=== PATIENT | female | born 1975 | race Caucasian/White ===

== ENCOUNTER 2022-09-08 07:38 | Outpatient (REF) | payer OTHER, SELFPAY ==
[2022-09-08 11:26] LABS: Appearance Urine Clear; Color Urine Yellow; Glucose Urine UA Negative (Negative); Leukocyte Esterase Urine Negative (Negative); Nitrite Urine Negative (Negative); PH 5.5 (5.0-9.0); Urine Blood Negative (Negative); Urine Ketones Negative (Negative); Urine Protein Negative (Neg-Trace)
[2022-09-08 11:51] LABS: Hematocrit 43.9 % (37.0-47.0); Hemoglobin 14.6 g/dl (12.0-16.0); Mean Corpuscular HGB Conc 33.3 g/dl (31.0-35.0); Mean Corpuscular Hemoglobin 28.3 pg (27.0-33.0); Mean Corpuscular Volume 85.2 fL (80.0-98.0); Mean Platelet Volume 10.5 fL (9.4-12.3); Platelet Count 251 X10*3/uL (160-400); Red Blood Count 5.15 X10*6/uL (4.20-5.50); Red Cell Distribution Width 13.6 % (11.0-16.0); White Blood Count 12.9 X10*3/uL (4.8-10.8)
[2022-09-08 12:20] LABS: Alanine Aminotransferase 32 U/L (0-31); Albumin Level 4.9 g/dL (3.5-5.0); Alkaline Phosphatase 70 U/L (39-117); Anion Gap 15 (12-20); Aspartate Amino Transferase 21 U/L (5-31); Bilirubin Total 1.1 mg/dL (0.0-1.0); Blood Urea Nitrogen 13 mg/dL (9-16); Calcium 9.4 mg/dL (8.4-10.2); Carbon Dioxide 25 mmol/L (22-29); Chloride 103 mmol/L (96-108); Cholesterol 181 mg/dL; Estimated Glomerular Filt Rate > 60; Glucose Fasting 101 mg/dL (60-99); HDL Cholesterol 36 mg/dL; LDL Cholesterol Calculated 120 mg/dl; Potassium 4.4 mmol/L (3.3-5.1); Sodium 139 mmol/L (135-145); Total Protein 7.3 g/dL (6.5-8.0); Triglycerides 129 mg/dL
[2022-09-08 12:28] LABS: TSH reflex Free T4 2.68 uIU/mL (0.32-4.0)
[2022-09-13 15:16] LABS: Vitamin D 25-OH, D2 <4 ng/mL; Vitamin D 25-OH, D3 40 ng/mL; Vitamin D 25-OH, Total 40 ng/mL (30-100)
== END 2022-09-08 07:39 | disposition home or self-care (01) ==
LOC: HO.HMGCLDS 07:38
PROVIDERS: PCP Hospitalist; Visit Provider Hospitalist
DX: Z00.00 Encounter for general adult medical examination without abnormal findings (principal); Z11.3 Encounter for screening for infections with a predominantly sexual mode of transmission; Z13.9 Encounter for screening, unspecified
CPT/HCPCS: 36415; 80053; 80061; 81003; 82306; 84443; 85027

== ENCOUNTER 2022-09-18 12:42 | Outpatient (REF) | payer OTHER, SELFPAY ==
--- NOTE | ~2022-09-18 | US_ITS ---
EXAMINATION: US ABDOMEN LIMITED CLINICAL INFORMATION: Other benign neoplasm of skin of trunk. Lump right upper quadrant abdominal wall COMPARISON: None TECHNIQUE: Real-time imaging of the region of concern in the right upper quadrant abdominal wall using a linear and curved transducer as indicated by the patient. FINDINGS: No abnormality is evident by ultrasound. No solid or cystic mass, fluid collection or hernia is appreciated. US/US abdomen limited IMPRESSION: No abnormality appreciated by ultrasound.
== END 2022-09-18 12:43 | disposition home or self-care (01) ==
LOC: HO.HMGCX 12:42
PROVIDERS: PCP Hospitalist; Visit Provider Hospitalist
DX: D23.5 Other benign neoplasm of skin of trunk (principal)
CPT/HCPCS: 76705

== ENCOUNTER 2023-06-04 13:29 | Outpatient (AMB) | payer OTHER, SELFPAY ==
--- NOTE | 2023-06-04 13:38 | MHC.PC.OV ---
Vital Signs 06/04/23 13:39 Height 5 ft 7.5 in Weight 227 lb 6 oz BMI 35.1 BP 132/70 Blood Pressure Location Rt brachial Position Sitting Respiration 12 Pulse 77 Pulse Source Pulse Oximeter Temp 97.7 F Temp Source Temporal Artery Scan Pulse Oximetry (%) 99 Oxygen Delivery Method Room Air Intake Visit Reasons: Discuss Gastro Referral Intake Note: Patient states she needs to get a colonoscopy as well as an order mammogram. Patient has a a spot on chest and she doesn't know what it . Patient states she has a lump by her rib cage that moves around and hurts here and there. Packing Attendant Required: No Accompanied by: Self / Same As Patient Allergies No Known Allergies Allergy (Verified 06/04/23 14:10) Medication List - Last Reconciled 06/04/23 by Tati Russell CNP docosahexaenoic acid-epa 120-180 mg (Fish Oil) 1 cap PO DAILY krill oil mg PO metformin 500 mg PO DAILY 90 days sertraline 50 mg PO DAILY Tobacco use date assessed: 06/04/23 Dental Screening Dental Screen Date: 06/04/23 Did you have a dental visit in the last 12 months?: Yes Did you have a dental problem in the last 6 months where you did not have access to dental care?: No Was dental information given to patient?: Patient has dentist HPI HPI Comments History of Present Illness Details 47-year-old female presents with complaints of a lump to her right upper quadrant with intermittent discomfort. She notes that the lump has been present for 2 years, have been painless until a month and half ago. The lump has been the same size. Review of US on 08/2022 was normal. She also reports two painless lumps on her chest. She notes her mother has h/o colon polyps and was advised for there children to have colonoscopy at age 45. She requests a colonoscopy. She also requests a mammogram. She states that her last mammogram was 3 years ago: normal [facility] Medical History (Updated 06/04/23 @ 14:38 by Tati Russell CNP) Anxiety History of PCOS No pertinent family history Surgical History (Updated 06/04/23 @ 13:58 by Sabrina Henderson MA) H/O lumpectomy S/P laparoscopic hysterectomy Social History (Updated 06/04/23 @ 14:02 by Sabrina Henderson MA) Household Members: Spouse Caregiver staying overnight: No Housing: House Are you a primary memory care program director to a significant other at home: No Do you presently have visiting nurse or other home services: No 75 years or older and lives alone: No Alcohol intake: current Patient Tobacco Use Status: Never used Tobacco e-Cigarette/Vaping Use: Never Used Use of substances other than those prescribed or required for medical reasons: No Any prior treatment program specific to substance use: No Have you been hit, kicked, punched, or otherwise hurt by someone within the past year? If so, by whom?: No Do you feel safe in your current relationship?: No Is there a partner from a previous relationship who is making you feel unsafe now?: No Are you made to feel afraid or neglected: No Special suki needs: No Agree to transfusion: Yes Are you DNR?: No Advance Directives: No Healthcare Proxy: No If Yes to HCP, is it invoked: No Guardian: No Access to Firearms: No Do you have thoughts of harming others: None Do you have a plan to hurt others: No Plan Do you have the means to hurt others: No Current Diet: Other Recently lost weight without trying: No Eating poorly because of decreased appetite: No Nutrition Risks: No Nutritional Risk Patient : No : No Visits dentist regularly: Yes Poor oral hygiene: No service: No Current occupational status: employed Sexually active: Yes Sexual orientation: Straight/Heterosexual Gender identity: Female Cognitive needs: No Hearing needs: No Vision needs: No Review of Systems Const Details: Const Denies chills, Denies fatigue, Denies fever(s), Denies headache(s) and Denies weakness ENT Denies dizziness and Denies headache(s) Card Denies chest pain, Denies lightheadedness, Denies dyspnea and Denies other (Palpitations) Resp Denies cough, Denies dyspnea, Denies wheezing and Denies other ( shortness of breath) GI Reports lump to her right upper quadrant, Denies abdominal pain, Denies melena, Denies hematochezia, Denies change in bowel habits, Denies dyspepsia and Denies nausea Denies hematuria and Denies dysuria Musc Denies abnormal gait, Denies myalgias, Denies arthralgias, Denies numbness and Denies tingling Skin/Breast Reports bumps on upper chest, Denies rash, Denies unusual bruising and Denies wounds Neuro Denies abnormal gait, Denies dizziness, Denies headache(s), Denies memory loss, Denies numbness, Denies Sensory deficit (Neuro), Denies tingling and Denies weakness Psych Denies anxiety and Denies depression Endo Denies cold intolerance, Denies fatigue, Denies heat intolerance, Denies polydipsia and Denies polyuria Aller/Immun Denies wheezing Physical exam (Primary Care) Vital Signs: Last Vital Signs Temp 97.7 F 06/04/23 13:39 Pulse 77 06/04/23 13:39 Resp 12 06/04/23 13:39 BP 132/70 06/04/23 13:39 Pulse Ox 99 06/04/23 13:39 Oxygen Delivery Method Room Air 06/04/23 13:39 BMI result Body Mass Index 35.1 Tobacco/Smoking Status: Tobacco use Status Tobacco use date assessed 06/04/23 06/04/23 14:02 Patient Tobacco Use Status Never used Tobacco 06/04/23 14:02 e-Cigarette/Vaping Use Never Used 06/04/23 14:02 Const Other: General: no acute distress and well developed Nutritional Appearance: well nourished Orientation/consciousness: patient oriented x3 HENMT Head: Yes normocephalic and Yes atraumatic Eyes General: appearance normal, both eyes and all related structures Pupils: Equal, round and reactive pupils present EOM: EOMs intact bilaterally Resp Effort & Inspection: normal respiratory effort Auscultation: clear to auscultation bilaterally Cardio Rate: regular rate Rhythm: regular rhythm Heart sounds: S1 normal heart sound present, S2 normal heart sound present, no gallops, no murmurs and no rubs GI Palpation (GI): No Abdominal aortic bruit present, Soft to palpation, nontender, No hepatosplenomegaly present and No Rebound tenderness present Approximately 5 cm by 5 cm, soft, painless lump to her right upper quadrant on the border of the ribcage Auscultation: normal bowel sounds General: Yes no CVA tenderness Back/Spine/Pelvis Back: no CVA tenderness Cervical Spine: cervical ROM normal and No Cervical spine tenderness Thoracic/Lumbar Spine: thoraco-lumbar ROM normal, No pain with thoraco-lumbar ROM, No thoracic spinal tenderness and No lumbar spinal tenderness Extrem General: Yes normal to inspection, No edema and No calf tenderness Skin General: warm and dry. Normal skin color. Normal skin turgor Lesions: Two, small, thick, raised scars to the mid upper chest Rashes: no rashes Trauma: no lacerations or abrasions Wounds: no wounds Nails: normal Neuro General: patient oriented x3, gait normal and no focal neuro deficit Cranial nerves: Yes Equal, round and reactive pupils present Cognition (Neuro): normal cognition Gait exam (Neuro): Normal gait present Motor exam (neuro): 5/5 motor strength present throughout Sensory Exam: No Sensory deficit (Neuro) Psych Affect: normal affect Assessment and Plan Assessment & Plan (1) Abdominal lump: Code(s): R19.00 - Intra-abdominal and pelvic swelling, mass and lump, unspecified site Plan: 47-year-old female presents with complaints of a lump to her right upper quadrant with intermittent discomfort. She notes that the lump has been present for 2 years, have been painless until a month and half ago. The lump has been the same size. Review of US on 08/2022 was normal. Approximately 5 cm by 5 cm, soft, painless lump to her right upper quadrant on the border of the ribcage Likely lipoma May take Tylenol ibuprofen for pain or discomfort Warm/cool compresses encouraged Ultrasound ordered Return with worsening or new signs and symptoms Verbalized understanding and agreed with treatment plan. (2) Keloid scar: Code(s): L91.0 - Hypertrophic scar Plan: She also reports 2 painless lumps on her chest Two, small, thick, raised scars to the mid upper chest, consistent with keloid scar Keloids are not harmful and no treatment required May have it removed surgically for cosmetic purposes. However, may return after surgery Follow-up as needed Verbalized understanding and agreed with the plan. (3) Colon cancer screening: Code(s): Z12.11 - Encounter for screening for malignant neoplasm of colon Plan: She notes her mother has h/o colon polyps and was advised for there children to have colonoscopy at age 45. She requests a colonoscopy. Colonoscopy referral made Return with symptoms or concerns Verbalized understanding and agreed with treatment plan. (4) Breast cancer screening: Code(s): Z12.39 - Encounter for other screening for malignant neoplasm of breast Plan: Requests a mammogram. She states that her last mammogram was 3 years ago: normal Mammogram ordered Orders: Orders MM screening mammo BI Today Z12.31 - Encounter for screening mammogram for malignant neoplasm of breast US abdomen limited Today R19.00 - Intra-abdominal and pelvic swelling, mass and lump, unspecified site Referrals Gastroenterology Referral Z12.11 - Encounter for screening for malignant neoplasm of colon Coding Level of Care Code Est Pt Level 4 (85724) Diagnoses Abdominal lump R19.00 Keloid scar L91.0 Colon cancer screening Z12.11 Breast cancer screening Z12.39 Time Spent (min) 35
[2023-06-04 13:39] VITALS: BP 132/70; PULSE 77; RESP 12; TEMP 36.5; O2SAT 99; BMI 35.1
== END 2023-06-04 14:29 | disposition home or self-care (01) ==
PROVIDERS: PCP Hospitalist; Visit Provider Nurse Practitioner Family
DX: R19.00 Intra-abdominal and pelvic swelling, mass and lump, unspecified site (principal); L91.0 Hypertrophic scar; Z12.11 Encounter for screening for malignant neoplasm of colon; Z12.39 Encounter for other screening for malignant neoplasm of breast
CPT/HCPCS: 99214

== ENCOUNTER 2023-06-16 08:12 | Outpatient (REF) | payer OTHER, SELFPAY ==
--- NOTE | ~2023-06-16 | US_ITS ---
EXAMINATION: US ABDOMEN LIMITED CLINICAL INFORMATION: Lump in the right upper quadrant abdominal wall. COMPARISON: None available. TECHNIQUE: Real-time imaging of the right upper quadrant abdominal wall. FINDINGS: Targeted sonographic evaluation of the area of clinical concern in the right upper quadrant abdominal wall demonstrating an approximately 6.3 x 5.3 x 1.8 cm well-defined soft tissue lesion with relative iso echogenicity compared to the subcutaneous fat and no associated vascular flow. US/US abdomen limited IMPRESSION: There is a 6.3 cm well-defined soft tissue lesion in the right upper quadrant abdominal wall which most likely represents a lipoma. However, if there is clinical concern, a follow-up ultrasound could be obtained to ensure stability.
== END 2023-06-16 08:13 | disposition home or self-care (01) ==
LOC: HO.HMGCX 08:12
PROVIDERS: PCP Hospitalist; Visit Provider Hospitalist
DX: R19.00 Intra-abdominal and pelvic swelling, mass and lump, unspecified site (principal)
CPT/HCPCS: 76705

== ENCOUNTER 2023-07-23 08:12 | Outpatient (AMB) | payer OTHER, SELFPAY ==
[2023-07-23 08:22] VITALS: BP 169/93; PULSE 63; BMI 35.4
--- NOTE | 2023-07-23 08:22 | A.OFFVIS_ITS ---
Intake Vital Signs 07/23/23 08:22 Height 5 ft 7.5 in Weight 229 lb 11.547 oz BMI 35.4 BP 169/93 H Blood Pressure Location Lt brachial Position Sitting Pulse 63 Intake Visit Reasons: Colonoscopy Screening Intake Note: Odalys presents in office as a new.patient for a colonoscopy screening PT CC: pt reports having no concerns , 1st colo pt denies any other GI Issues Table Games Floor Supervisor Required: No Accompanied by: Self / Same As Patient Allergies No Known Allergies Allergy (Verified 07/23/23 08:23) Medication List - Last Reconciled 07/23/23 by Mayi Alcantar PA-C docosahexaenoic acid-epa 120-180 mg (Fish Oil) 1 cap PO DAILY krill oil mg PO metformin 500 mg PO DAILY 90 days sertraline 50 mg PO DAILY HPI HPI Comments History of Present Illness Details A 47 y/o f index screening-family history of colon polyps, her mother at 50 bhavik Normal bowels-sometimes diarrhea- associates with metformin She has hemorrhoids-- she wants to consult for removal [facility] Medical History (Updated 07/23/23 @ 09:04 by Mayi Alcantar PA-C) Anxiety History of PCOS No pertinent family history Surgical History (Updated 07/23/23 @ 08:43 by Mayi Alcantar PA-C) H/O lumpectomy Social History Household Members: Spouse Caregiver staying overnight: No Housing: House Are you a primary care management specialist to a significant other at home: No Do you presently have visiting nurse or other home services: No 75 years or older and lives alone: No Alcohol intake: current Patient Tobacco Use Status: Never used Tobacco e-Cigarette/Vaping Use: Never Used Special suki needs: No Agree to transfusion: Yes service: No Current occupational status: employed Sexual orientation: Straight/Heterosexual Gender identity: Female Cognitive needs: No Hearing needs: No Vision needs: No Review of Systems Const All systems reviewed & are unremarkable except as noted in HPI and below Card Denies chest pain and Denies dyspnea Resp Denies dyspnea GI Denies abdominal pain, Denies nausea and Denies vomiting Physical Exam Vital Signs: Last Vital Signs Pulse 63 07/23/23 08:22 BP 169/93 H 07/23/23 08:22 BMI result Body Mass Index 35.4 Const General: cooperative, healthy appearing, comfortable, no acute distress and well groomed Orientation/consciousness: patient oriented x3 Limitations: no limitations Eyes Sclerae: sclerae normal Resp Effort & Inspection: normal respiratory effort and able to speak in complete sentences Auscultation: rales and wheezes right upper Cardio Rate: regular rate Rhythm: regular rhythm Heart sounds: S1 normal heart sound present and S2 normal heart sound present GI Palpation (GI): Soft to palpation and nontender Auscultation: normal bowel sounds Skin General skin exam: no rashes or lesions noted Neuro General: patient oriented x3 Extrem General: Yes full ROM Psych Appearance: grossly normal and well kempt Mental Status: mental status grossly normal Speech and movement: Normal speech and movement present Affect: normal affect Attitude: cooperative Thought process: Normal thought process present Thought content: Normal thought content present Insight: Good insight present (Psych) Judgement: Good judgement present (Psych) Assessment & Plan Assessment & Plan (1) Colon cancer screening: Comment: Family history colon polyps her mother her in her 50s Code(s): Z12.11 - Encounter for screening for malignant neoplasm of colon Plan: Screening colonoscopy-MiraLax Gatorade split (2) External hemorrhoid: Code(s): K64.4 - Residual hemorrhoidal skin tags Plan: Surgical referral (3) Encounter for colonoscopy in patient with family history of colon polyps: Comment: Mother in her 50s-history of colon polyps Code(s): Z12.11 - Encounter for screening for malignant neoplasm of colon; Z83.71 - Family history of colonic polyps Plan Index screening colonoscopy MiraLax Gatorade split prep-she is hopeful for small amount of anesthesia Surgical referral for him Orders: Orders Colonoscopy - GI Use Only Today Z12.11 - Encounter for screening for malignant neoplasm of colon Referrals General Surgery Referral K64.4 - Residual hemorrhoidal skin tags Medications: New bisacodyl (Dulcolax (bisacodyl)) Take 4 tablets by mouth at 12:00pm the day before your procedure. 20 mg (4 x 5 mg) PO ONCE 1 day 4 tabs 0RF colonoscopy prep Z12.11 - Encounter for screening for malignant neoplasm of colon polyethylene glycol 3350 (Miralax) Take as directed by mouth the day before your procedure. 238 grams PO ONCE 1 day PRN 238 grams 0RF laxative effect Patient Instructions: Very pleasant 47-year-old female PCOS family history of colon polyps referred for index screening colonoscopy-she has no GI complaints. Index screening colonoscopy MiraLax Gatorade split prep No metformin evening before procedure or morning of procedure Maintain high-fiber diet avoid straining with however Surgical referral Coding Level of Care Code New Pt Level 3 (14502) Diagnoses Colon cancer screening Z12.11 External hemorrhoid K64.4 Encounter for colonoscopy in patient with family history of colon polyps Z12.11; Z83.71 Time Spent (min) 30
== END 2023-07-23 09:15 | disposition home or self-care (01) ==
PROVIDERS: PCP Hospitalist; Visit Provider Physician Assistant
DX: Z12.11 Encounter for screening for malignant neoplasm of colon (principal); K64.4 Residual hemorrhoidal skin tags; Z83.71 Family history of colonic polyps; Z01.818 Encounter for other preprocedural examination
CPT/HCPCS: S0285

== ENCOUNTER → 2023-07-23 08:12 | Outpatient (BNVA) | payer OTHER, SELFPAY | PROVIDERS: PCP Hospitalist; Visit Provider Physician Assistant ==

== ENCOUNTER 2023-07-30 16:01 | Outpatient (REF) | payer OTHER, SELFPAY | END 2023-07-30 16:02 | disposition home or self-care (01) | LOC: HO.MAMMO 16:01 | PROVIDERS: PCP Nurse Practitioner Family; Visit Provider Nurse Practitioner Family | DX: Z12.31 Encounter for screening mammogram for malignant neoplasm of breast (principal) | CPT/HCPCS: 77063; 77067 ==

== ENCOUNTER → 2023-07-30 16:15 | Outpatient (BNV) | payer OTHER, SELFPAY | PROVIDERS: PCP Nurse Practitioner Family; Visit Provider Radiology Diagnostic Radiology | DX: Z12.31 Encounter for screening mammogram for malignant neoplasm of breast (principal) | CPT/HCPCS: 77063; 77067 ==

== ENCOUNTER 2023-12-04 07:42 | Day surgery (SDC) | payer OTHER, SELFPAY ==
[2023-12-01 15:22] VITALS: BMI 35.5
--- NOTE | 2023-12-03 10:09 | P.CONAN_ITS ---
Documented by User: Silvia Tolbert NP 12/03/23 10:09 HPI - Anesthesia Eval Consult details Narrative: 48yo F for Colonoscopy PMFSH Active Problems Active Problems: All Active Problems (Updated 12/01/23 @ 15:20 by Katrina Krueger RN) Encounter for colonoscopy in patient with family history of colon polyps (Acute) External hemorrhoid (Acute) Breast cancer screening (Acute) Colon cancer screening (Acute) Keloid scar (Acute) Abdominal lump (Acute) Dermoid cyst of trunk (Acute) Due for screening (Acute) Normal physical exam (Acute) History of PCOS (Acute) Anxiety (Acute) Past Medical History Medical History Anxiety History of PCOS Surgical History Surgical History (Updated 12/04/23 @ 08:30 by Loren Diaz RN) Hx of section H/O lumpectomy Social History Social History Household Members: Spouse Housing: House Are you a primary career development facilitator to a significant other at home: No Do you presently have visiting nurse or other home services: No Alcohol intake: current Patient Tobacco Use Status: Never used Tobacco e-Cigarette/Vaping Use: Never Used Special suki needs: No Agree to transfusion: Yes Are you DNR?: No Advance Directives: No Advance Directives Information Provided: Yes Nutrition Risks: No Nutritional Risk FDLMP: a few months ago service: No Current occupational status: employed Sexual orientation: Straight/Heterosexual Gender identity: Female Cognitive needs: No Hearing needs: No Vision needs: No Meds Allergies Allergy/AdvReac Type Severity Reaction Status Date / Time No Known Allergies Allergy Verified 12/04/23 08:26 Home Medications Medication Instructions Recorded Confirmed Last Taken Type docosahexaenoic acid (dha)-epa 120 1 cap PO DAILY 06/04/23 12/01/23 Unknown History mg-180 mg capsule (Fish Oil) krill oil 500 mg capsule 500 mg PO DAILY 06/04/23 12/01/23 Unknown History Exam Height,Weight and Vital Signs: Height 5 ft 7.5 in Weight 104.326 kg Assessment and Plan Assessment Anesthesia Assessment: Chart Reviewed Documented by User: Stefany Ojeda MD 12/04/23 08:31 [facility] Past Medical History Medical History Anxiety History of PCOS Family History Family history of problems with anesthesia: No Surgical History Surgical History (Updated 12/04/23 @ 08:30 by Loren Diaz RN) Hx of section H/O lumpectomy History of Problems with Anesthesia: No Social History Social History Household Members: Spouse Housing: House Are you a primary career development facilitator to a significant other at home: No Do you presently have visiting nurse or other home services: No Alcohol intake: current Patient Tobacco Use Status: Never used Tobacco e-Cigarette/Vaping Use: Never Used Special suki needs: No Agree to transfusion: Yes Are you DNR?: No Advance Directives: No Advance Directives Information Provided: Yes Nutrition Risks: No Nutritional Risk FDLMP: a few months ago service: No Current occupational status: employed Sexual orientation: Straight/Heterosexual Gender identity: Female Cognitive needs: No Hearing needs: No Vision needs: No Meds Allergies Allergy/AdvReac Type Severity Reaction Status Date / Time No Known Allergies Allergy Verified 12/04/23 08:26 Home Medications Medication Instructions Recorded Confirmed Last Taken Type docosahexaenoic acid (dha)-epa 120 1 cap PO DAILY 06/04/23 12/01/23 Unknown History mg-180 mg capsule (Fish Oil) krill oil 500 mg capsule 500 mg PO DAILY 06/04/23 12/01/23 Unknown History Exam Airway Mallampati Class: II TM Dist: >3cm Neck ROM: Full Heart: rrr Lungs: cta Assessment and Plan Assessment Anesthesia Assessment: Anesthesia Plan Discussed Final Anesthetic Review Family History of Problems with Anesthesia: No History of Problems with Anesthesia: No NPO: Yes ASA Class: III Final Preanesthetic Review: No Changes in Pt Med Stat, Meds/Allgs Chart Reviewed and Consent Obtained/Reviewed Patient Risk: Intermediate Procedure Risk: Intermediate Anesthetic Plan Anesthetic Plan: MAC: Disposition: Standard PACU
[2023-12-04 07:51] VITALS: BMI 35.9
[2023-12-04] MEDS: Lactated Ringers 1,000 ML 100 ML IVCONT (08:10)
[2023-12-04 08:23] VITALS: PULSE 72; RESP 18; TEMP 36.7; O2SAT 98
[2023-12-04 08:29] VITALS: BP 133/73
--- NOTE | 2023-12-04 08:47 | MHC.SHP ---
Pre-Procedural Eval Section A Date of Service: 12/04/23 The patient is an INPATIENT: No The History & Physical has been completed within 30 days and I have reviewed it.: No Section B Chief Complaint: screening Relevant Family History (Specify if Yes): Yes Relevant Social History: None Present Medications: see Short Stay Collaborative assessment Medical History: Significant History (Anxiety History of PCOS) History of Previous Operations: Relevant previous surgery/procedure and date(s) (hx of lumpectomy, hx of C section) Allergies: Allergies Allergy/AdvReac Type Severity Reaction Status Date / Time No Known Allergies Allergy Verified 12/04/23 08:26 Review of Systems Sugical H&P ROS: Negative: Constitution, Cardiovascular, Respiratory and Gastrointestinal Exam Surgical H&P Exam: Normal: Heart, Normal: Lungs, Normal: Extremities and Normal: Abdomen Plan Diagnosis/Plan: Unchanged I have reviewed the history and physical and performed a pertinent physical examination on my patient. No changes have occurred unless specified. Time Spent With Patient Time: Total time managing care of this patient today ____ minutes.
[2023-12-04 09:36] LABS: UPreg QC Valid YES; Urine Pregnancy NEGATIVE (NEGATIVE)
[2023-12-04 10:23] VITALS: BP 114/69; PULSE 68; RESP 16; TEMP 36.1; O2SAT 100
--- NOTE | 2023-12-04 10:23 | P.OP_ITS ---
Operative Note Operative Note Date of Service: 12/04/23 Narrative: COLONOSCOPY TILL CECUM Pre-op diagnosis: Colon cancer screening, family history of colon polyps (Mom in her 60's) Post-op diagnosis:? Diverticulosis, hemorrhoids Endoscopist:? Pretty Draper MD Anesthesia:?MAC Consent: Indications for the procedure and potential complications of bleeding, perforation, reaction to medications and missed diagnosis were discussed with the patient and informed consent was obtained. Instrument: Olympus PCF H 190 L variable stiffness pediatric colonoscope Monitoring: Vital signs and clinical assessment, intermittent blood pressure monitoring, continuous EKG monitoring, Pulse oximetry and Carbon Dioxide monitoring were done throughout the procedure. Please see anesthesia flowsheet. Colon withdrawl time was 19 minutes. Procedure: The patient was placed in the left lateral decubitis position and pre-procedure medications were administered. After a digital rectal examination of the ano-rectum, the video colonoscope was inserted into the rectum and advanced through the colon to the cecum. The colonoscope was slowly withdrawn in a retrograde panoramic fashion and the colon mucosa was carefully examined including a retroflexed view of the rectum. Findings and interventions are described below. Procedure Difficulty: Colon was long and there was some loop formation Findings: Terminal Ileum: Not evaluated Cecum: Normal Ascending Colon: Normal Transverse Colon: Normal Descending Colon: Moderate diverticulosis Sigmoid Colon: Moderate diverticulosis Rectum: Normal Ano-rectum: Small internal hemorrhoids Colon preparation: Good [place] Bowel Preparation Scale Right colon; 2 Transverse colon: 2 Left colon; 2 (0 = Unprepared colon segment with mucosa not seen due to solid stool that cannot be cleared. 1 = Portion of mucosa of the colon segment seen, but other areas of the colon segment not well seen due to staining, residual stool and/or opaque liquid. 2 = Minor amount of residual staining, small fragments of stool and/or opaque liquid, but mucosa of colon segment seen well. 3 = Entire mucosa of colon segment seen well with no residual staining, small fragments of stool or opaque liquid) Impression and Post Procedure Diagnosis: Colonoscopy Findings: No polyps were detected. Moderate diverticulosis seen in the left colon Small hemorrhoids on retroflexed exam. Plan: Patient has an appointment on 12/29/23 in the GI Clinic with BREE Thomas. Repeat Colonoscopy in 5 years (due to family hx of colon polyps). Above findings were reviewed with the patient and diverticulosis handout was given in the discharge area
[2023-12-04 10:38] VITALS: BP 112/65; PULSE 65; RESP 16; O2SAT 100
[2023-12-04 10:51] VITALS: BP 116/72; PULSE 61; RESP 16; TEMP 36.5; O2SAT 100
== END 2023-12-04 11:30 | disposition home or self-care (01) ==
PROVIDERS: Nurse Practitioner; PCP Internal Medicine; Visit Provider Internal Medicine Gastroenterology
PROC: 0DJD8ZZ Inspection of Lower Intestinal Tract, Via Natural or Artificial Opening Endoscopic (ICD-10-PCS; CPT 45378; principal; 2023-12-04 09:20)
DX: Z12.11 Encounter for screening for malignant neoplasm of colon (principal); Z86.010 Personal history of colon polyps; K57.30 Diverticulosis of large intestine without perforation or abscess without bleeding; K64.8 Other hemorrhoids; F41.9 Anxiety disorder, unspecified; E28.2 Polycystic ovarian syndrome; Z79.84 Long term (current) use of oral hypoglycemic drugs; Z79.899 Other long term (current) drug therapy; Z98.890 Other specified postprocedural states
CPT/HCPCS: 45378; 81025; J2704

== ENCOUNTER → 2023-12-04 07:42 | Outpatient (BNV) | payer OTHER, SELFPAY | PROVIDERS: PCP Internal Medicine; Visit Provider Internal Medicine Gastroenterology | DX: Z12.11 Encounter for screening for malignant neoplasm of colon (principal); Z83.718 Family history of other colon polyps; K57.90 Diverticulosis of intestine, part unspecified, without perforation or abscess without bleeding; K64.8 Other hemorrhoids | CPT/HCPCS: 45378 ==

== ENCOUNTER 2024-06-30 09:48 | Outpatient (AMB) | payer OTHER, SELFPAY ==
[2024-06-30 09:56] VITALS: BP 126/74; PULSE 74; O2SAT 97; BMI 32.5
--- NOTE | 2024-06-30 09:56 | MHC.PC.OV ---
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 She has history of PCOS currently on metformin. She has anxiety disorder currently taking sertraline 50 mg daily which has been helping. Has positive family history for colon cancer, in mom, underwent a screening colonoscopy done by Dr. Draper 12/04/2023 which showed presence of diverticulosis and internal hemorrhoids, no polyps seen. [facility] Medical History (Updated 06/30/24 @ 10:46 by Nohemy Mckeon MD) Lipoma Obesity (BMI 30.0-34.9) Anxiety History of PCOS Surgical History (Updated 06/30/24 @ 10:30 by Nohemy Mckeon MD) Hx of colonoscopy Hx of section H/O lumpectomy Social History Household Members: Spouse Housing: House Are you a primary social worker palliative care to a significant other at home: No Do you presently have visiting nurse or other home services: No Alcohol intake: current Patient Tobacco Use Status: Never used Tobacco e-Cigarette/Vaping Use: Never Used Special suki needs: No Agree to transfusion: Yes service: No Current occupational status: employed Sexual orientation: Straight/Heterosexual Gender identity: Female Cognitive needs: No Hearing needs: No Vision needs: No Female Reproductive History Menstrual Duration of menses: 3-5 days Date of last menstrual period: 06/13/24 Questionnaire PHQ-9 Over the last 2 weeks, how often have you been bothered by any of the following problems? 1. Little interest or pleasure in doing things: not at all 2. Feeling down, depressed, or hopeless: not at all 3. Trouble falling or staying asleep, or sleeping too much: not at all 4. Feeling tired or having little energy: not at all 5. Poor appetite or overeating: not at all 6. Feeling bad about yourself - or that you are a failure or have let yourself or your family down: not at all 7. Trouble concentrating on things, such as reading the newspaper or watching television: not at all 8. Moving or speaking so slowly that other people could have noticed. Or the opposite - being so fidgety or restless that you have been moving around a lot more than usual: not at all 9. Thoughts that you would be better off or of hurting yourself in some way: not at all Total score: 0 Depression Screening Interpretation: Negative Depression Screening Done: Yes 85067 - PHQ-9 Billing: Yes Source: Developed by Drs. Gurmeet Pickering, Babita West, Dillan Vance and colleagues, with an educational hazel from [employer]. Thrive Questionnaire Date Thrive assessed: 06/30/24 I am a: Patient What is your living situation today?: I have a steady place to live Within the past 12 months, did the food you bought not last and you didn't have the money to get more?: Never true Within the past 12 months, did you worry whether your food would run out before you got money to buy more?: Never true Do you have trouble paying for medicines?: No Do you have trouble getting transportation to medical appointments?: No Do you have trouble paying your heating and electricity bill?: No Do you have trouble taking care of your child, family member or friend?: No Do you have trouble with day-to-day activities such as bathing, preparing meals, shopping, managing finances, etc.?: No Are you currently unemployed and looking for a job?: No Are you interested in more education?: No Please select the resources that you would like help with: Housing/Senior Living Currently or been in a relationship where the following occur: No concerns reported THRIVE Score: 0 AUDIT C Alcohol Use Questionnaire (AUDIT-C) 1. How often do you have a drink containing alcohol?: Monthly or less 2. How many drinks containing alcohol do you have on a typical day when you are drinking?: 1 or 2 3. How often do you have six or more drinks on one occasion?: Never Total Score: 1 Score Reviewed/Action Taken: Yes ROGELIO-7 AMB Questionnaire ROGELIO-7 Date ROGELIO - 7 assessed: 06/30/24 Feeling nervous, anxious, or on edge: 0 = Not at all Not being able to stop or control worryin = Not at all Worrying too much about different things: 1 = Several days Trouble relaxin = Not at all Being so restless that it is hard to sit still: 1 = Several days Becoming easily annoyed or irritable: 0 = Not at all Feeling afraid as if something awful might happen: 0 = Not at all Total ROGELIO-7 score (0-4 normal; 5-9 mild; 10-14 moderate; 15-21 severe): 2 Source: Developed by Drs. Gurmeet Pickering, Babita West, Dillan Vance and colleagues, with an educational hazel from [employer]. ROGELIO-7 Assessment Billing ROGELIO-7 Assessment Tool: ROGELIO-7 Assessment 07399 Review of Systems Const Denies body aches, Denies fatigue, Denies fever(s), Denies headache(s) and Denies weakness Eyes Denies change in vision ENT Denies dizziness, Denies headache(s), Denies nasal congestion, Denies nasal discharge and Denies sore throat Card Denies chest pain, Denies lightheadedness, Denies palpitations and Denies dyspnea Resp Denies chest congestion, Denies cough, Denies dyspnea and Denies wheezing GI Denies abdominal pain, Denies change in bowel habits and Denies heartburn Denies hematuria, Denies urinary frequency, Denies dysuria and Denies urinary urgency Musc Reports no additional complaints Skin/Breast Denies breast pain, Denies breast mass, Denies lesions and Denies rash Neuro Denies dizziness, Denies headache(s) and Denies weakness Psych Reports no additional complaints Endo Denies fatigue, Denies polydipsia, Denies polyuria and Denies palpitations Roman/Lymph Denies easy bruising Aller/Immun Denies seasonal rhinorrhea and Denies wheezing Physical exam (Primary Care) Vital Signs: Last Vital Signs Pulse 74 06/30/24 09:56 BP 126/74 06/30/24 09:56 Pulse Ox 97 06/30/24 09:56 Oxygen Delivery Method Room Air 06/30/24 09:56 BMI result Body Mass Index 32.5 Tobacco/Smoking Status: Tobacco use Status Tobacco use date assessed 06/30/24 06/30/24 09:58 Patient Tobacco Use Status Never used Tobacco 06/30/24 09:58 e-Cigarette/Vaping Use Never Used 06/30/24 09:58 PHQ-9: PHQ-9 Score PHQ-9: Total score 0 06/30/24 10:28 Depression Screening Interpretation: Negative Thrive Assessment: Date of Thrive Assessment Date Thrive assessed 06/30/24 06/30/24 09:58 Currently or been in a relationship where the following occur: No concerns reported Const General: comfortable, no acute distress and alert Orientation/consciousness: patient oriented x3 Limitations: no limitations HENMT Ears: external ears normal, TM's normal bilaterally and EAC's normal General nose exam: Normal external nose present and No nasal discharge present Mouth: Normal oral and palatal mucosa present, oropharynx normal and moist mucous membranes Eyes General: appearance normal, both eyes and all related structures Conjunctivae: conjunctivae normal Sclerae: sclerae normal Pupils: Equal, round and reactive pupils present EOM: EOMs intact bilaterally Neck Neck: Yes full ROM, Yes no lymphadenopathy and Yes supple Resp Effort & Inspection: normal respiratory effort and able to speak in complete sentences Auscultation: clear to auscultation bilaterally Cardio Rate: regular rate Rhythm: regular rhythm Heart sounds: S1 normal heart sound present and S2 normal heart sound present GI Palpation (GI): Soft to palpation, nontender and no masses Auscultation: normal bowel sounds Back/Spine/Pelvis Back: No back tenderness Skin General skin exam: no rashes or lesions noted Neuro General: patient oriented x3, gait normal, tone normal, moves all extremities, Normal light touch and pain sensation and no focal motor deficits Cranial nerves: Yes CN's II-XII intact bilaterally and Yes Equal, round and reactive pupils present Cognition (Neuro): normal cognition Extrem General: Yes full ROM, Yes no joint enlargement, Yes no clubbing, cyanosis or edema and Yes no calf tenderness Psych Appearance: grossly normal and well kempt Mental Status: mental status grossly normal Speech and movement: Normal speech and movement present Affect: normal affect Attitude: cooperative Thought process: Normal thought process present Thought content: Normal thought content present Results AMB Hemoglobin A1c AMB Hemoglobin A1c 4.5 % Last Edit by Wing Royal CMA on 06/30/24 10:47 Results Reviewed Results Reviewed: Laboratory Last Values Hgb A1c (Clinic) 4.5 % (4.0-6.0) 06/30/24 10:47 Assessment and Plan Assessment & Plan (1) Obesity (BMI 30.0-34.9): Code(s): E66.9 - Obesity, unspecified Plan: Y. Discussed need to increase activity and weight reduction. Recommended focusing on improving health instead of dieting. Mediterranean diet is a healthy diet that helps, limit food high in fat, sugar, and calories. Eat slowly, pay attention to portion sizes, plan your meals ahead of time, start regular physical activity, at least 150 minutes of moderate intensity exercise, or 90 minutes per week of vigorous exercise. Keeping a food diary, tracking what you eat and your physical activity can help assess what improvements you can make. There are many health problems associated with being overweight/obese, so it is important to improve your diet and exercise. There are medications and surgical options available, but Lifestyle changes are the 1st step. (2) History of PCOS: Comment: taking metformin Code(s): Z87.42 - Personal history of other diseases of the female genital tract Plan: Continued on metformin 500 mg 1 daily, referred to OBGYN for further evaluation management (3) Screening for malignant neoplasm of cervix: Code(s): Z12.4 - Encounter for screening for malignant neoplasm of cervix Plan: Referred to OBGYN for her routine Pap (4) Lipoma: Code(s): D17.9 - Benign lipomatous neoplasm, unspecified Plan: On right costal margin Currently asymptomatic will observe (5) Anxiety: Code(s): F41.9 - Anxiety disorder, unspecified Plan: Continue sertraline 50 mg daily (6) Impaired fasting glucose: Code(s): R73.01 - Impaired fasting glucose Plan: Your previous fasting blood sugars were elevated above 100 mg/dL. Impaired glucose metabolism increases the risk for developing diabetes mellitus type 2, as well as heart attack and stroke later on. Lifestyle changes that promotes weight loss, healthy eating habits, and regular exercise are important, and can prevent the progression to diabetes. Hemoglobin A1c today is at 4.5% Orders: Orders Lipid Panel Today E66.9 - Obesity, unspecified, Z13.1 - Encounter for screening for diabetes mellitus, Z13.220 - Encounter for screening for lipoid disorders, Z87.42 - Personal history of other diseases of the female genital tract Aspartate Amino Transferase Today E66.9 - Obesity, unspecified, Z13.1 - Encounter for screening for diabetes mellitus, Z13.220 - Encounter for screening for lipoid disorders, Z87.42 - Personal history of other diseases of the female genital tract Basic Metabolic Panel Fasting Today E66.9 - Obesity, unspecified, Z13.1 - Encounter for screening for diabetes mellitus, Z13.220 - Encounter for screening for lipoid disorders, Z87.42 - Personal history of other diseases of the female genital tract Complete Blood Count Auto Diff Today E66.9 - Obesity, unspecified, Z13.1 - Encounter for screening for diabetes mellitus, Z13.220 - Encounter for screening for lipoid disorders, Z87.42 - Personal history of other diseases of the female genital tract Alanine Aminotransferase Today E66.9 - Obesity, unspecified, Z13.1 - Encounter for screening for diabetes mellitus, Z13.220 - Encounter for screening for lipoid disorders, Z87.42 - Personal history of other diseases of the female genital tract AMB Hemoglobin A1c Today Z13.9 - Encounter for screening, unspecified AMB Hemoglobin A1c Today R73.01 - Impaired fasting glucose Referrals MANAGER OF HOUSEKEEPING Referral Z12.4 - Encounter for screening for malignant neoplasm of cervix, Z87.42 - Personal history of other diseases of the female genital tract Medications: Changed From sertraline 50 mg PO DAILY 30 days 30 tabs 1RF To sertraline 50 mg PO DAILY 90 tabs 1RF 3 months Refilled metformin 500 mg PO DAILY 90 tabs 1RF 90 days Coding Level of Care Code Est Pt Level 4 (59350) Diagnoses Obesity (BMI 30.0-34.9) E66.9 History of PCOS Z87.42 Screening for malignant neoplasm of cervix Z12.4 Lipoma D17.9 Anxiety F41.9 Impaired fasting glucose R73.01 Additional Codes ROGELIO-7 Assessment Billing - ROGELIO-7 Assessment Tool: ROGELIO-7 Assessment 74454 ([id number])
== END 2024-06-30 10:56 | disposition home or self-care (01) ==
PROVIDERS: PCP Internal Medicine; Visit Provider Internal Medicine
DX: R73.01 Impaired fasting glucose (principal); E66.9 Obesity, unspecified; Z87.42 Personal history of other diseases of the female genital tract; Z68.32 Body mass index [BMI] 32.0-32.9, adult; D17.9 Benign lipomatous neoplasm, unspecified; F41.9 Anxiety disorder, unspecified
CPT/HCPCS: 83036; 99214

== ENCOUNTER 2024-06-30 10:49 | Outpatient (REF) | payer OTHER, SELFPAY ==
[2024-06-30 13:12] LABS: MANUAL DIFF FLAG NO
[2024-06-30 13:25] LABS: Basophils Percent Auto 0.3 % (0-2); Eosinophils Absolute Auto 0.1 X10*3/uL (0.0-0.4); Eosinophils Percent Auto 0.6 % (0-4); Hematocrit 45.3 % (37.0-47.0); Hemoglobin 15.2 g/dl (12.0-16.0); Imm Gran Abs Auto 0.02 X10*3/uL (0.00-0.03); Imm Gran Pct Auto 0.2 % (0.0-0.4); Lymphocytes Absolute Auto 1.4 X10*3/uL (1.2-4.9); Lymphocytes Percent Auto 14.9 % (20-40); Mean Corpuscular HGB Conc 33.6 g/dl (31.0-35.0); Mean Corpuscular Hemoglobin 29.2 pg (27.0-33.0); Mean Corpuscular Volume 87.1 fL (80.0-98.0); Mean Platelet Volume 10.5 fL (9.4-12.3); Monocytes Absolute Auto 0.6 X10*3/uL (0.1-1.2); Monocytes Percent Auto 5.9 % (2-11); Neutrophils Absolute Auto 7.5 x10*3/uL (2.0-8.3); Neutrophils Percent Auto 78.1 % (45-73); Platelet Count 253 X10*3/uL (160-400); Red Cell Distribution Width 13.7 % (11.0-16.0); White Blood Count 9.6 X10*3/uL (4.8-10.8)
[2024-06-30 13:45] LABS: Alanine Aminotransferase 19 U/L (0-31); Anion Gap 11 (12-20); Aspartate Amino Transferase 19 U/L (5-31); Blood Urea Nitrogen 14 mg/dL (9-16); Calcium 10.1 mg/dL (8.4-10.2); Carbon Dioxide 28 mmol/L (22-29); Chloride 106 mmol/L (96-108); Cholesterol 202 mg/dL (<200); Estimated Glomerular Filt Rate 53; Glucose Fasting 95 mg/dL (60-99); HDL Cholesterol 38 mg/dL (>40); LDL Cholesterol Calculated 141 mg/dL (<100); Potassium 4.5 mmol/L (3.3-5.1); Sodium 140 mmol/L (135-145); Triglycerides 119 mg/dL (<150)
== END 2024-06-30 10:50 | disposition home or self-care (01) ==
LOC: HO.HMGCLDS 10:49
PROVIDERS: PCP Internal Medicine; Visit Provider Internal Medicine
DX: Z13.220 Encounter for screening for lipoid disorders (principal); Z13.1 Encounter for screening for diabetes mellitus; E66.9 Obesity, unspecified; Z87.42 Personal history of other diseases of the female genital tract
CPT/HCPCS: 36415; 80048; 80061; 84450; 84460; 85025

== ENCOUNTER 2024-07-26 11:31 | Outpatient (AMB) | payer OTHER, SELFPAY ==
[2024-07-26 11:37] VITALS: BP 120/80; BMI 32.6
--- NOTE | 2024-07-26 11:37 | MHC.OFFVIS ---
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 She has a history of PCOS and said she had some abnormal periods and was put on metformin by her doctor in [place] and also she had an endometrial biopsy and some polyps and then had a Mirena placed in 2021. She believes her last Pap smear was in 2020. She had trouble getting and has a 10-year-old so the Mirena in her mind was not really placed for control it was to deal with the abnormal bleeding. But it does both, though if she got at this age she does not think it would be a bad thing. she is 48 about to be 49, she believes her mother went through menopause late. She is very well tanned she has been at [facility]. She had her mammogram last year and is about to have her next 1. [facility] Medical History (Updated 07/26/24 @ 12:14 by Maria L Batista CNM) Lipoma Obesity (BMI 30.0-34.9) Anxiety History of PCOS Surgical History Hx of colonoscopy Hx of section H/O lumpectomy Social History Household Members: Spouse Caregiver staying overnight: No Housing: House Are you a primary care management associate to a significant other at home: No Do you presently have visiting nurse or other home services: No 75 years or older and lives alone: No Alcohol intake: current Patient Tobacco Use Status: Never used Tobacco e-Cigarette/Vaping Use: Never Used Special suki needs: No Agree to transfusion: Yes service: No Current occupational status: employed Sexual orientation: Straight/Heterosexual Gender identity: Female Cognitive needs: No Hearing needs: No Vision needs: No Female Reproductive History Menstrual Age of Menarche: 13 Duration of menses: 3-5 days control method: progestin IUCD Total pregnancies: 1 Full term: 1 Date of last pap smear: 11/13/21 (negative) History of abnormal pap smear: No (unsure ?) Date of Mammogram: 07/30/23 (negative) Physical Exam Vital Signs: Last Vital Signs BP 120/80 07/26/24 11:37 BMI result Body Mass Index 32.6 Const General: healthy appearing, comfortable, no acute distress, well developed and alert Nutritional Appearance: average body habitus Orientation/consciousness: patient oriented x3 Limitations: no limitations HEENT Head: Yes normocephalic Neck Neck: Yes normal visual inspection Chest Chest palpation & inspection: normal inspection of the chest Breast/axilla inspection: normal inspection of the breasts and normal inspection of the axillae Breast/axilla palpation: normal palpation of the breasts and normal palpation of the axillae Resp Effort & Inspection: normal respiratory effort GI Inspection: Yes normal to inspection, No Abdominal wall edema and No distended Palpation (GI): Soft to palpation and nontender Other: External exam within normal limits vagina is pink and moist multiparous cervix is pink smooth with scant menstrual staining Mirena strings easily visible extending about 2-3 cm cervix is long close thick mobile nontender uterus midposition mobile nontender adnexa nontender not enlarged good tone with Kegel. General: Yes bladder normal to palpation External Female Exam: normal external appearance and normal appearance of the urethra Speculum Exam - Vagina: normal appearance of the vagina, normal palpation and normal vaginal discharge Speculum Exam - Cervix: normal appearance of the cervix, normal palpation and nontender Bimanual exam- vagina & uterus: normal bimanual exam, normal palpation, uterine size normal, bladder normal to palpation, consistency normal, normal palpation, uterine mobility normal, uterine shape normal, No Cervical tenderness present, non-tender and no cervical motion tenderness Bimanual Exam- Adnexa, other: normal adnexae, no masses, normal and No adnexal tenderness Neuro General: patient oriented x3 Assessment & Plan Assessment & Plan (1) History of PCOS: Comment: taking metformin; history of irregular periods had EMB in past and then Mirena was placed in 2021 to manage endometrium... Code(s): Z87.42 - Personal history of other diseases of the female genital tract Category: Medical (2) Cervical cancer screening: Code(s): Z12.4 - Encounter for screening for malignant neoplasm of cervix Category: Medical (3) Well woman exam with routine gynecological exam: Code(s): Z01.419 - Encounter for gynecological examination (general) (routine) without abnormal findings Category: Medical (4) Presence of 52 mg levonorgestrel-releasing intrauterine device (IUD): Code(s): Z97.5 - Presence of (intrauterine) contraceptive device Category: Social Hx Plan -----Discussed in this visit the following: healthy balanced diet, regular and consistent exercise, getting recommended health screens, doing the best she can for her particular health concerns, kegel exercises, pap smear screening and followup recommendations, mammography screening and SBE, normal changes in cycles in her life stage--- . Discussed that the Mirena was likely placed to manage her abnormal irregular bleeding pattern and prevent potential future problems. She is happy enough with it in finds it convenient. Discussed the length of time it can be used and different rationale. Since her mother went through late menopause she may want to have a discussion about evaluating for that around the time a Mirena change but it can be used for between 5-8 years. Discussed that currently recommendations are 5 years for dysfunctional uterine bleeding and 8 years for contraception and discussed the questionable rationale for this. She will be getting her mammogram done soon. She gets her other healthcare needs managed who her primary. She has no need of any other labs were evaluations today. Coding Level of Care Code New Pt Prev Care 40-64y(26892) Diagnoses History of PCOS Z87.42 Cervical cancer screening Z12.4 Well woman exam with routine gynecological exam Z01.419 Presence of 52 mg levonorgestrel-releasing intrauterine device (IUD) Z97.5
== END 2024-07-26 12:12 | disposition home or self-care (01) ==
PROVIDERS: PCP Internal Medicine; Visit Provider Advanced Practice Midwife
DX: Z01.419 Encounter for gynecological examination (general) (routine) without abnormal findings (principal); Z87.42 Personal history of other diseases of the female genital tract
CPT/HCPCS: 99386

== ENCOUNTER 2024-07-26 11:31 | Outpatient (REF) | payer OTHER, SELFPAY ==
[2024-07-27 06:20] LABS: CT PCR NOT DETECTED (Not Detect.); NG PCR NOT DETECTED (Not Detect.)
[2024-07-27 10:41] LABS: Bacterial Vaginosis PCR NEGATIVE (Negative); Candida Group PCR DETECTED (Not Detect); Candida glab krusei PCR NOT DETECTED (Not Detect); Trichomonas vaginalis PCR NOT DETECTED (Not Detect)
[2024-07-31 13:47] LABS: HPV mRNA E6/E7 Not Detected (Not Detected)
== END 2024-07-26 11:32 | disposition home or self-care (01) ==
LOC: HO.LAB 11:31
PROVIDERS: PCP Internal Medicine; Visit Provider Advanced Practice Midwife
DX: N89.8 Other specified noninflammatory disorders of vagina (principal); Z20.2 Contact with and (suspected) exposure to infections with a predominantly sexual mode of transmission
CPT/HCPCS: 0352U; 36415; 87491; 87591; 87624; 88175

== ENCOUNTER 2024-08-15 15:28 | Outpatient (REF) | payer OTHER, SELFPAY ==
--- NOTE | ~2024-08-15 | MM_ITS ---
EXAMINATION: MM SCREENING DIGITAL BREAST TOMOSYNTHESIS, BILATERAL CLINICAL INFORMATION: Screening. Asymptomatic. COMPARISON: Mammography: Comparison is made with available priors TECHNIQUE: Digital breast mammography with tomosynthesis is performed in both the craniocaudal and mediolateral oblique views along with computer-aided detection (CAD). FINDINGS: There are scattered areas of fibroglandular density (ACR BI-RADS breast composition Category b). Bilateral scattered asymmetries are stable back to 2021. There are no significant masses, abnormal calcifications, or other abnormalities. MM/MM tomosynthesis screening BI IMPRESSION: No mammographic evidence of malignancy. ASSESSMENT: BI-RADS BI-RADS 2 - Benign Findings RECOMMENDATION: Routine annual mammography screening. 1 year F/U This examination should not preclude the clinical evaluation of a suspicious palpable abnormality. This patient's information was entered into a reminder system with a target due date for their next mammogram. Electronically signed by: Lexi Martinez DO 08/26/2024 10:47 AM EDT
== END 2024-08-15 15:29 | disposition home or self-care (01) ==
LOC: HO.MAMMO 15:28
PROVIDERS: PCP Internal Medicine; Visit Provider Internal Medicine
DX: Z12.31 Encounter for screening mammogram for malignant neoplasm of breast (principal)
CPT/HCPCS: 77063; 77067

== ENCOUNTER → 2024-08-15 15:30 | Outpatient (BNV) | payer OTHER, SELFPAY | PROVIDERS: PCP Internal Medicine; Visit Provider Internal Medicine | DX: Z12.31 Encounter for screening mammogram for malignant neoplasm of breast (principal) | CPT/HCPCS: 77063; 77067 ==

== ENCOUNTER 2025-08-21 15:47 | Outpatient (REF) | payer OTHER, SELFPAY ==
--- NOTE | ~2025-08-21 | MM_ITS ---
EXAMINATION: MM SCREENING DIGITAL BREAST TOMOSYNTHESIS, BILATERAL CLINICAL INFORMATION: Screening. Asymptomatic. History of previous biopsy or surgery, however, laterality or year not specified. COMPARISON: August 15, 2024 and July 30, 2023 TECHNIQUE: Digital breast tomosynthesis is performed in mediolateral oblique and craniocaudal views along with computer-aided detection (CAD). Synthesized 2D images are generated from the tomosynthesis. FINDINGS: BREAST COMPOSITION: The breasts are heterogeneously dense, which may obscure small masses. RIGHT BREAST: Asymmetry with suggestion of architectural distortion in the lateral breast on the CC view at 6.6 cm from the nipple (CC 10/57). No suspicious calcifications are seen. LEFT BREAST: No significant masses, suspicious calcifications or other abnormalities are seen. MM/MM tomosynthesis screening BI IMPRESSION: RIGHT BREAST: Asymmetry of suggestion of architectural distortion in the lateral breast on the CC view middle depth. Correlate with possible history of local surgery. LEFT BREAST: Negative, no mammographic evidence of malignancy. Normal interval follow-up is recommended in 12 months. ASSESSMENT: BI-RADS: Category 0: Incomplete - Need additional Imaging Evaluation RECOMMENDATION: 1. Additional views of the right breast 2. Targeted ultrasound if warranted after review of the additional views. 3. Radiology department staff will contact the patient for additional imaging. FOLLOW-UP: Additional Imaging required This examination should not preclude the clinical evaluation of a suspicious palpable abnormality. This patient's information was entered into a reminder system with a target due date for their next mammogram. Electronically signed by: Berry Stratton MD 08/22/2025 07:56 PM EDT
--- OUTSIDE RECORDS SUMMARY | 2025-08-21 17:50 | XMS_ITS | Clinical Summary ---
Author Organization [facility] Address [address] [place] [address] Care Team Providers Care Recruiting Internship Name Role Phone Unavailable Primary Care Provider Unavailabl e Allergies No known active allergies Medications Medication Sig Dispensed Refills Start Date End Date Status metFORMIN (GLUCOPHAGE) tablet 500 mg Take 1 tablet (500 mg total) by mouth daily. 0 11/25/2022 Active sertraline (ZOLOFT) 50 MG tablet Take 1 tablet (50 mg total) by mouth. 0 07/08/2021 Active KRILL OIL PO Take by mouth. 0 Active Cholecalciferol (Vitamin D) 50 MCG (2000 UT) CAPS Take by mouth. 0 Active Multiple Vitamin (MULTIVITAMIN ADULT PO) Take by mouth. 0 Active Active Problems No known active problems Social History Tobacco Use Types Packs/Day Years Used Date Smoking Tobacco: Never Smokeless Tobacco: Never Alcohol Use Standard Drinks/Week Comments Not Currently 0 (1 standard drink = 0.6 oz pur e alcohol) Sex and Gender Information Value Date Recorded Sex Assigned at Female 01/02/2023 12:51 PM EST Gender Identity Female 01/02/2023 12:51 PM EST Sexual Orientation Not on file Job Start Date Occupation Industry Not on file Not on file Not on file Last Filed Vital Signs Vital Sign Reading Time Taken Comments Blood Pressure - - Pulse - - Temperature - - Respiratory Rate - - Oxygen Saturation - - Inhaled Oxygen Concentration - - Weight 103.4 kg (228 lb) 01/05/2023 11:14 AM EST Height 168.3 cm (5' 6.25 ) 01/05/2023 11:[address] Body Mass Index 36.52 01/05/2023 11:14 AM EST Plan of Treatment Health Maintenance Due Date Last Done Comments Hepatitis B Vaccines (1 of 3 - 3-dose series) 1975 Hepatitis C Screening 1975 Depression Screening 1987 BMI Counseling 1993 Preventative Health Evaluation 1993 Cervical Cancer Screening (Pap Smear) 1996 DTap / Tdap / Td (1 - Tdap) 07/25/2006 07/24/2006 Colon Cancer Screening (Colonoscopy) 2020 COVID-19 Vaccine (3 - 2024-2 6 season) 2025 05/04/2021, 04/13/2021 Influenza Vaccine (#1) 2025 09/16/2020 Pneumococcal Vaccine Aged Out No long er eligible based on patient's age to complete this topic RSV Ped < 20 months Aged Out No longe r eligible based on patient's age to complete this topic
== END 2025-08-21 15:48 | disposition home or self-care (01) ==
LOC: HO.MAMMO 15:47
PROVIDERS: PCP Internal Medicine; Visit Provider Internal Medicine
DX: Z12.31 Encounter for screening mammogram for malignant neoplasm of breast (principal)
CPT/HCPCS: 77063; 77067

== ENCOUNTER → 2025-08-21 16:00 | Outpatient (BNV) | payer OTHER, SELFPAY | PROVIDERS: PCP Internal Medicine; Visit Provider Radiology Body Imaging | DX: Z12.31 Encounter for screening mammogram for malignant neoplasm of breast (principal) | CPT/HCPCS: 77063; 77067 ==

== ENCOUNTER 2025-09-20 07:50 | Outpatient (REF) | payer OTHER, SELFPAY ==
--- NOTE | ~2025-09-20 | MM_ITS ---
EXAMINATION: MM DIAGNOSTIC DIGITAL BREAST TOMOSYNTHESIS, RIGHT CLINICAL INFORMATION: Call back from screening for questioned distortion in the lateral right breast posterior depth on CC view. Patient has had previous benign excisional biopsy in the right lower outer breast posterior depth in 2004. COMPARISON: Mammography: Priors on PACS. TECHNIQUE: Digital breast tomosynthesis is performed in both the craniocaudal and mediolateral oblique views along with computer-aided detection (CAD). Synthesized 2D images are generated from the tomosynthesis. FINDINGS: The breasts are heterogeneously dense, which may obscure small masses. Area of architectural distortion the lower outer breast posterior depth seen on CC view correlates with the area of postsurgical changes from benign excisional biopsy in 2005. There are no significant masses, abnormal calcifications, or other abnormalities. MM/MM tomosynthesis added views R IMPRESSION: No mammographic evidence of malignancy. ASSESSMENT: BI-RADS Category 2: Benign RECOMMENDATION: 1 year F/U Results were provided to the patient at time of visit by the technologist. This patient's information was entered into a reminder system with a target due date for their next mammogram. Electronically signed by: Leix Martinez DO 09/20/2025 08:28 AM EDT
--- OUTSIDE RECORDS SUMMARY | 2025-09-20 07:53 | XMS_ITS | Clinical Summary ---
Author Organization [facility] Address [address] [place] [address] Care Team Providers Care Computational Sciences Professor Name Role Phone Unavailable Primary Care Provider [...]
== END 2025-09-20 07:51 | disposition home or self-care (01) ==
LOC: HO.MAMMO 07:50
PROVIDERS: PCP Internal Medicine; Visit Provider Internal Medicine
DX: N64.89 Other specified disorders of breast (principal)
CPT/HCPCS: 77061; 77065

== ENCOUNTER → 2025-09-20 08:00 | Outpatient (BNV) | payer OTHER, SELFPAY | PROVIDERS: PCP Internal Medicine; Visit Provider Internal Medicine | DX: R92.8 Other abnormal and inconclusive findings on diagnostic imaging of breast (principal) | CPT/HCPCS: 77061; 77065 ==

== ENCOUNTER 2025-11-01 14:05 | Outpatient (AMB) | payer OTHER, SELFPAY ==
--- NOTE | 2025-11-01 14:14 | MHC.PC.OV ---
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 Allergies No Known Allergies Allergy (Verified 11/01/25 14:57) Medication List - Last Reconciled 11/01/25 by Nohemy Mckeon MD docosahexaenoic acid-epa 120-180 mg (Fish Oil) 1 cap PO DAILY levonorgestrel (Mirena) intrauterine metformin 500 mg PO DAILY 90 days sertraline 50 mg PO DAILY 3 months Tobacco use date assessed: 11/01/25 Dental Screening Dental Screen Date: 11/01/25 Did you have a dental visit in the last 12 months?: Yes Did you have a dental problem in the last 6 months where you did not have access to dental care?: No Was dental information given to patient?: Patient has dentist HPI kidney infection HPI Details 50-year-old lady with history currently on metformin , and dyslipidemia, anxiety disorder, here today for follow-up after recent admission at [facility] for acute pyelonephritis. Patient states that she already completed taking her antibiotics, and at present is asymptomatic. A urine dipstick done today showed unremarkable findings except for presence of microhematuria. [facility] Medical History (Updated 11/01/25 @ 15:01 by Nohemy Mckeon MD) Dyslipidemia Lipoma Obesity (BMI 30.0-34.9) Anxiety History of PCOS Surgical History (Updated 11/01/25 @ 15:01 by Nohemy Mckeon MD) Hx of colonoscopy Hx of section H/O lumpectomy Social History Household Members: Spouse Caregiver staying overnight: No Housing: House Are you a primary career center director to a significant other at home: No Do you presently have visiting nurse or other home services: No 75 years or older and lives alone: No Alcohol intake: current Patient Tobacco Use Status: Never used Tobacco e-Cigarette/Vaping Use: Never Used Special suki needs: No Agree to transfusion: Yes service: No Current occupational status: employed Sexual orientation: Straight/Heterosexual Gender identity: Female Cognitive needs: No Hearing needs: No Vision needs: No Female Reproductive History Menstrual Age of Menarche: 13 Questionnaire PHQ-9 Over the last 2 weeks, how often have you been bothered by any of the following problems? 1. Little interest or pleasure in doing things: not at all 2. Feeling down, depressed, or hopeless: not at all 3. Trouble falling or staying asleep, or sleeping too much: several days 4. Feeling tired or having little energy: not at all 5. Poor appetite or overeating: not at all 6. Feeling bad about yourself - or that you are a failure or have let yourself or your family down: not at all 7. Trouble concentrating on things, such as reading the newspaper or watching television: not at all 8. Moving or speaking so slowly that other people could have noticed. Or the opposite - being so fidgety or restless that you have been moving around a lot more than usual: not at all 9. Thoughts that you would be better off or of hurting yourself in some way: not at all Total score: 1 Depression Screening Interpretation: Negative Depression Screening Done: Yes 91083 - PHQ-9 Billing: Yes Source: Developed by Drs. Gurmeet Pickering, Babita West, Dillan Vance and colleagues, with an educational hazel from [employer]. Thrive Questionnaire Date Thrive assessed: 06/30/24 I am a: Patient What is your living situation today?: I have a steady place to live Within the past 12 months, did the food you bought not last and you didn't have the money to get more?: Never true Within the past 12 months, did you worry whether your food would run out before you got money to buy more?: Never true Do you have trouble paying for medicines?: No Do you have trouble getting transportation to medical appointments?: No Do you have trouble paying your heating and electricity bill?: No Do you have trouble taking care of your child, family member or friend?: No Do you have trouble with day-to-day activities such as bathing, preparing meals, shopping, managing finances, etc.?: No Are you currently unemployed and looking for a job?: No Are you interested in more education?: No Please select the resources that you would like help with: None Currently or been in a relationship where the following occur: No concerns reported THRIVE Score: 0 AUDIT C Alcohol Use Questionnaire (AUDIT-C) 1. How often do you have a drink containing alcohol?: Monthly or less 2. How many drinks containing alcohol do you have on a typical day when you are drinking?: 1 or 2 3. How often do you have six or more drinks on one occasion?: Never Total Score: 1 ROGELIO-7 AMB Questionnaire ROGELIO-7 Date ROGELIO - 7 assessed: 06/30/24 Feeling nervous, anxious, or on edge: 0 = Not at all Not being able to stop or control worryin = Not at all Worrying too much about different things: 1 = Several days Trouble relaxin = Several days Being so restless that it is hard to sit still: 0 = Not at all Becoming easily annoyed or irritable: 0 = Not at all Feeling afraid as if something awful might happen: 0 = Not at all Total ROGELIO-7 score (0-4 normal; 5-9 mild; 10-14 moderate; 15-21 severe): 2 Source: Developed by Drs. Gurmeet Pickering, Babita West, Dillan Vance and colleagues, with an educational hazel from [employer]. ROGELIO-7 Assessment Billing ROGELIO-7 Assessment Tool: ROGELIO-7 Assessment 86106 Review of Systems Const Denies body aches, Denies fatigue, Denies fever(s), Denies headache(s) and Denies weakness ENT Denies dizziness and Denies headache(s) Card Denies chest pain, Denies lightheadedness, Denies palpitations and Denies dyspnea Resp Denies cough, Denies dyspnea and Denies wheezing GI Denies abdominal pain, Denies change in bowel habits and Denies heartburn Denies hematuria, Denies urinary frequency, Denies dysuria and Denies urinary urgency Musc Reports no additional complaints Neuro Denies dizziness, Denies headache(s) and Denies weakness Psych Reports no additional complaints Endo Denies fatigue, Denies polydipsia, Denies polyuria and Denies palpitations Roman/Lymph Denies easy bruising Aller/Immun Denies seasonal rhinorrhea and Denies wheezing Physical exam (Primary Care) Vital Signs: Last Vital Signs Temp 98.1 F 11/01/25 14:15 Pulse 67 11/01/25 14:15 Resp 16 11/01/25 14:15 BP 134/90 H 11/01/25 14:15 Pulse Ox 99 11/01/25 14:15 Oxygen Delivery Method Room Air 11/01/25 14:15 BMI result Body Mass Index 26.3 Tobacco/Smoking Status: Tobacco use Status Tobacco use date assessed 11/01/25 11/01/25 14:16 Patient Tobacco Use Status Never used Tobacco 11/01/25 14:16 e-Cigarette/Vaping Use Never Used 11/01/25 14:16 PHQ-9: PHQ-9 Score PHQ-9: Total score 1 11/01/25 15:05 Depression Screening Interpretation: Negative Thrive Assessment: Date of Thrive Assessment Date Thrive assessed 06/30/24 11/01/25 14:16 Currently or been in a relationship where the following occur: No concerns reported Const General: comfortable, no acute distress and alert Orientation/consciousness: patient oriented x3 HENMT Ears: external ears normal General nose exam: Normal external nose present Mouth: moist mucous membranes Eyes General: appearance normal, both eyes and all related structures Neck Neck: Yes full ROM, Yes no lymphadenopathy and Yes supple Resp Effort & Inspection: normal respiratory effort and able to speak in complete sentences Auscultation: clear to auscultation bilaterally Cardio Rate: regular rate Rhythm: regular rhythm Heart sounds: S1 normal heart sound present and S2 normal heart sound present GI Palpation (GI): Soft to palpation, nontender and no masses Auscultation: normal bowel sounds General: Yes no CVA tenderness Back/Spine/Pelvis Back: no CVA tenderness and No back tenderness Skin General skin exam: no rashes or lesions noted Neuro General: patient oriented x3, gait normal, tone normal, moves all extremities, Normal light touch and pain sensation and no focal motor deficits Cranial nerves: Yes CN's II-XII intact bilaterally Cognition (Neuro): normal cognition Extrem General: Yes full ROM, Yes no joint enlargement, Yes no clubbing, cyanosis or edema and Yes no calf tenderness Psych Appearance: grossly normal and well kempt Mental Status: mental status grossly normal Speech and movement: Normal speech and movement present Affect: normal affect Results AMB Urinalysis, Automated UA Leukoctes 0 Clara/uL Last Edit by Jaida Couch, ESTEBAN on 11/01/25 14:31 UA Nitrite Negative Last Edit by Jaida Couch, SPARES SCHEDULER on 11/01/25 14:31 UA Urobilinogen 0.2 mg/dL Last Edit by Jaida Couch, SPARES SCHEDULER on 11/01/25 14:31 UA Protein 0 mg/dL Last Edit by Jaida Couch, SPARES SCHEDULER on 11/01/25 14:31 UA pH 6.0 Last Edit by Jaida Couch, SPARES SCHEDULER on 11/01/25 14:31 UA Blood 80 Bernabe/uL Last Edit by Jaida Couch, [facility] on 11/01/25 14:31 UA Specific Spring 1.025 Last Edit by Jaida Couch, SPARES SCHEDULER on 11/01/25 14:31 UA Ketone Negative Last Edit by Jaida Couch, SPARES SCHEDULER on 11/01/25 14:31 UA Bilirubin 0 mg/dL Last Edit by Jaida Couch, SPARES SCHEDULER on 11/01/25 14:31 UA Glucose 0 mg/dL Last Edit by Jaiad Couch, [facility] on 11/01/25 14:31 Results Reviewed Results Reviewed: Laboratory Last Values Urine pH (Auto) 6.0 11/01/25 14:23 Specific Spring (Auto) 1.025 11/01/25 14:23 Urine Protein (Auto) 0 mg/dL 11/01/25 14:23 Glucose (UA)(Auto) 0 mg/dL 11/01/25 14:23 Urine Ketones (Auto) Negative 11/01/25 14:23 Urine Blood (Auto) 80 Bernabe/uL 11/01/25 14:23 Urine Nitrite (Auto) Negative 11/01/25 14:23 Urine Bilirubin (Auto) 0 mg/dL 11/01/25 14:23 Urine Urobilinogen (Auto) 0.2 mg/dL 11/01/25 14:23 Leukocyte Esterase (Auto) 0 Clara/uL 11/01/25 14:23 Coding Level of Care Code Est Pt Level 4 (14535) Diagnoses Dyslipidemia E78.5 Anxiety F41.9 History of PCOS Z87.42 History of pyelonephritis Z87.448 Additional Codes ROGELIO-7 Assessment Billing - ROGELIO-7 Assessment Tool: ROGELIO-7 Assessment 51470 ([id number]) PHQ-9 - 26434 - PHQ-9 Billing: Yes ([id number]) Assessment & Plan Assessment & Plan (1) Dyslipidemia: Code(s): E78.5 - Hyperlipidemia, unspecified Category: Medical Plan: Will check again another fasting lipid panel, reinforced importance of adhering to healthy eating habits and getting regular exercise (2) Anxiety: Code(s): F41.9 - Anxiety disorder, unspecified Category: Medical Plan: Stable and controlled on sertraline 50 mg once a day (3) History of PCOS: Comment: taking metformin; history of irregular periods had EMB in past and then Mirena was placed in 2021 to manage endometrium... Code(s): Z87.42 - Personal history of other diseases of the female genital tract Category: Medical Plan: Currently being followed at [facility], on metformin 500 mg once a day. Has an appointment already scheduled to be seen by her OBGYN next year (4) History of pyelonephritis: Code(s): Z87.448 - Personal history of other diseases of urinary system Plan: Currently asymptomatic, repeat urinalysis showed no nitrites or leukocytes, and presence of microhematuria present. Orders: Orders Lipid Panel 01/21/26 E66.9 - Obesity, unspecified, E78.5 - Hyperlipidemia, unspecified, F41.9 - Anxiety disorder, unspecified, Z87.42 - Personal history of other diseases of the female genital tract AMB Urinalysis Automated Today Z13.9 - Encounter for screening, unspecified Basic Metabolic Panel Fasting 01/21/26 E66.9 - Obesity, unspecified, E78.5 - Hyperlipidemia, unspecified, F41.9 - Anxiety disorder, unspecified, Z87.42 - Personal history of other diseases of the female genital tract Aspartate Amino Transferase 01/21/26 E66.9 - Obesity, unspecified, E78.5 - Hyperlipidemia, unspecified, F41.9 - Anxiety disorder, unspecified, Z87.42 - Personal history of other diseases of the female genital tract Alanine Aminotransferase 01/21/26 E66.9 - Obesity, unspecified, E78.5 - Hyperlipidemia, unspecified, F41.9 - Anxiety disorder, unspecified, Z87.42 - Personal history of other diseases of the female genital tract Vitamin D 25-OH Total 01/21/26 E66.9 - Obesity, unspecified, E78.5 - Hyperlipidemia, unspecified, F41.9 - Anxiety disorder, unspecified, Z87.42 - Personal history of other diseases of the female genital tract
[2025-11-01 14:15] VITALS: BP 134/90; PULSE 67; RESP 16; TEMP 36.7; O2SAT 99; BMI 26.3
--- OUTSIDE RECORDS SUMMARY | 2025-11-01 21:58 | XMS_ITS | Clinical Summary ---
Author Organization [facility] Prior to 04/22/[address] [place] [id number] Care Team Providers Care Anodic Treater Name Role Phone Unavailable Primary Care Provider [...] 05/04/2021, 04/13/2021 Influenza Vaccine (#1) 2025 09/16/2020 Breast Cancer Screening (Mammogram) 2025 Shingrix-Zoster Vaccine (1 o f 2) 2025 Pneumococcal Vaccine Aged Out No long er eligible based on patient's age to complete this topic RSV Ped < 20 months Aged Out No longe r eligible based on patient's age to complete this topic
== END 2025-11-01 15:02 | disposition home or self-care (01) ==
LOC: HO.HMCC 14:06
PROVIDERS: PCP Internal Medicine; Visit Provider Internal Medicine
DX: E78.5 Hyperlipidemia, unspecified (principal); F41.9 Anxiety disorder, unspecified; Z87.42 Personal history of other diseases of the female genital tract; Z87.448 Personal history of other diseases of urinary system; Z13.9 Encounter for screening, unspecified

== ENCOUNTER → 2025-11-01 14:05 | Outpatient (BNVA) | payer OTHER, SELFPAY | PROVIDERS: PCP Internal Medicine; Visit Provider Internal Medicine | DX: Z09 Encounter for follow-up examination after completed treatment for conditions other than malignant neoplasm (principal); E78.5 Hyperlipidemia, unspecified; F41.9 Anxiety disorder, unspecified; Z87.42 Personal history of other diseases of the female genital tract; Z87.448 Personal history of other diseases of urinary system; E66.9 Obesity, unspecified; Z13.31 Encounter for screening for depression | CPT/HCPCS: 81003; 96127; 99212 ==